=== PATIENT | male | born 1965 | race African-American/Black ===

== ENCOUNTER 2018-09-10 05:35 | Inpatient (IN) ==
[2018-09-10] MEDS ORDERED: ceFAZolin 1,000 MG in SYRINGE 1 EACH IV ONE (06:00)
[2018-09-10] MEDS ORDERED: VANCOMYCIN INJ 1,000 MG in SODIUM CHLORIDE 0.9% 250 ML IV ONE (06:00)
[2018-09-10] MEDS ORDERED: VANCOMYCIN 1,000 MG VIAL ONE (06:05)
[2018-09-10] MEDS ORDERED: ceFAZolin 1,000 MG VIAL ONE (06:05)
[2018-09-10] MEDS: LACTATED RINGERS 1,000 ML IV SCH (06:20)
[2018-09-10] MEDS ORDERED: TRANEXAMIC ACID 1,000 MG/10 ML VIAL ONE (06:31)
[2018-09-10] MEDS ORDERED: DEXAMETHASONE 4 MG/1 ML VIAL ONE (07:10)
[2018-09-10] MEDS ORDERED: SODIUM CHLORIDE 0.9% 100 ML IV ONE (07:10)
[2018-09-10] MEDS ORDERED: EPINEPHrine 1 MG/ML VIAL ONE (07:10)
[2018-09-10] MEDS ORDERED: BUPIVACAINE 0.5% 50 ML VIAL ONE (07:10)
[2018-09-10] MEDS ORDERED: MAGNESIUM HYDROXIDE SUSP 30 ML UDCUP PO PRN (07:32)
[2018-09-10] MEDS ORDERED: LACTULOSE 20 GM/30 ML UDCUP PO PRN (07:32)
[2018-09-10] MEDS ORDERED: TEMAZEPAM 7.5 MG CAPSULE PO PRN (07:32)
[2018-09-10] MEDS ORDERED: diphenhydrAMINE CAP 25 MG CAPSULE PO PRN (07:32)
[2018-09-10] MEDS ORDERED: BISACODYL 10 MG SUPP RECTAL PRN (07:32)
[2018-09-10] MEDS ORDERED: PROMETHAZINE 25 MG/1 ML VIAL IM PRN (07:32)
[2018-09-10] MEDS ORDERED: ONDANSETRON 4 MG/2 ML VIAL IV PRN (07:32)
[2018-09-10] MEDS ORDERED: ZALEPLON 5 MG CAPSULE PO PRN (07:36)
[2018-09-10] MEDS ORDERED: DEXTROSE 10% 250 ML BAG IV PRN (07:37)
[2018-09-10] MEDS ORDERED: GLUCAGON 1 MG VIAL IM PRN (07:37)
[2018-09-10] MEDS ORDERED: PROPOFOL 200 MG/20 ML VIAL IV ONE (09:05)
[2018-09-10] MEDS ORDERED: SODIUM CHLORIDE 0.9% 250 ML IV ONE (09:06)
[2018-09-10] MEDS ORDERED: fentaNYL 100 MCG/2 ML VIAL ONE (09:06)
[2018-09-10] MEDS ORDERED: PHENYLEPHRINE 1 MG/10 ML SYRINGE IV ONE (09:06)
[2018-09-10] MEDS ORDERED: MIDAZOLAM 2 MG/2 ML VIAL ONE (09:06)
[2018-09-10] MEDS ORDERED: BUPIVACAINE SPINAL 0.75% 2 ML AMP SPINAL ONE (09:06)
[2018-09-10] MEDS ORDERED: LACTATED RINGERS 2,000 ML IV ONE (09:06)
[2018-09-10 09:27] LABS: Apearance,Urine CLEAR (Clear); Bilirubin,Urine Negative (Negative); Blood, Urine Negative (Negative); Glucose,Urine (UA) Negative (Negative); Ketones,Urine 5 mg/dL (Negative); Mucus,Urine Occasional /LPF (Occasional); Nitrite,Urine Negative (Negative); Protein,Urine Negative; RBC,Urine 1 /HPF (0-4); Squamous Epithelial Cell,Urine Occasional /HPF (0-10); Urine Color Yellow (Yellow); Urine Specific Gravity 1.019 (1.001-1.035); Urine Urobilinogen < 2.0 EU/DL (0.2-1.0); WBC,Urine <1 /HPF (0-6)
[2018-09-10] MEDS: INSULIN REGULAR 100 UNIT/ML SUBCUT SCH ×3 (11:30→21:58)
[2018-09-10] MEDS: ROSUVASTATIN 20 MG TABLET PO SCH (13:58)
[2018-09-10] MEDS: DOCUSATE SODIUM 100 MG CAPSULE PO SCH ×2 (13:58→21:58)
[2018-09-10] MEDS: DILTIAZEM CD 300 MG CAPSULE PO SCH (13:58)
[2018-09-10] MEDS: ASPIRIN EC 81 MG TABLET PO SCH (13:58)
[2018-09-10] MEDS: FERROUS SULFATE 325 MG TABLET PO SCH (13:59)
[2018-09-10] MEDS: PANTOPRAZOLE 40 MG TABLET PO SCH (13:59)
[2018-09-10] MEDS: OMEGA 3 ACID ETHYL ESTERS 1 GM CAPSULE PO SCH (13:59)
[2018-09-10] MEDS: TRIAMTERENE/HCTZ 37.5-25 MG TABLET PO SCH (13:59)
[2018-09-10] MEDS: CHOLECALCIFEROL 1,000 UNIT TABLET PO SCH (13:59)
[2018-09-10] MEDS: tiZANidine 4 MG TABLET PO SCH ×2 (14:00→21:57)
[2018-09-10] MEDS: metFORMIN 850 MG TABLET PO SCH ×2 (14:00→16:55)
[2018-09-10] MEDS: MORPHINE 4 MG/1 ML VIAL IV PRN ×2 (14:37→19:38)
[2018-09-10] MEDS: ceFAZolin 2,000 MG in PREMIX 1 EACH IV SCH ×2 (14:42→23:38)
[2018-09-10] MEDS: glyBURIDE 5 MG TABLET PO SCH (17:05)
[2018-09-10] MEDS: traZODone 50 MG TABLET PO SCH (21:57)
[2018-09-10] MEDS: CETIRIZINE 10 MG TABLET PO SCH (21:57)
[2018-09-10] MEDS: FONDAPARINUX 2.5 MG/0.5 ML SYRINGE SUBCUT SCH (21:57)
[2018-09-11] MEDS: MORPHINE 4 MG/1 ML VIAL IV PRN ×2 (00:10→08:43)
[2018-09-11 05:40] LABS: Basophils % 0.3 % (0.0-0.8); Hemoglobin 10.9 GM/DL (14.0-18.0); Immature Granulocytes % 0.6 %; Immature Granulocytes Absolute 0.04 #; Lymphocytes # 1.2 10*3/uL (1.4-4.0); Lymphocytes % 17.1 % (21.2-54.2); Mean Corpuscular Volume 90.2 FL (87-102); Mean Platelet Volume 11.3 FL (9.6-12.0); Monocytes % 9.6 % (1.7-12.7); Neutrophils % 72.4 % (38.7-73.9); Platelet Count 186 T/CUMM (130-400); Red Blood Count 3.66 MC/CUMM (3.8-5.5); Red Cell Distribution Width 12.2 % (9.3-17.3); White Blood Count 7.1 T/CUMM (4-12)
[2018-09-11 06:09] LABS: Calcium 8.8 MG/DL (8.5-10.1); Osmolality,Calculated 284.4 MOS/KG (273-304)
[2018-09-11] MEDS: LACTATED RINGERS 1,000 ML IV SCH ×2 (06:13→14:50)
[2018-09-11] MEDS: DILTIAZEM CD 300 MG CAPSULE PO SCH (08:42)
[2018-09-11] MEDS: metFORMIN 850 MG TABLET PO SCH ×3 (08:42→16:21)
[2018-09-11] MEDS: ROSUVASTATIN 20 MG TABLET PO SCH (08:42)
[2018-09-11] MEDS: OMEGA 3 ACID ETHYL ESTERS 1 GM CAPSULE PO SCH (08:42)
[2018-09-11] MEDS: DOCUSATE SODIUM 100 MG CAPSULE PO SCH ×2 (08:42→21:00)
[2018-09-11] MEDS: ASPIRIN EC 81 MG TABLET PO SCH (08:42)
[2018-09-11] MEDS: FERROUS SULFATE 325 MG TABLET PO SCH (08:42)
[2018-09-11] MEDS: TRIAMTERENE/HCTZ 37.5-25 MG TABLET PO SCH (08:42)
[2018-09-11] MEDS: CHOLECALCIFEROL 1,000 UNIT TABLET PO SCH (08:42)
[2018-09-11] MEDS: glyBURIDE 5 MG TABLET PO SCH ×2 (08:42→16:21)
[2018-09-11] MEDS: PANTOPRAZOLE 40 MG TABLET PO SCH (08:42)
[2018-09-11] MEDS: INSULIN REGULAR 100 UNIT/ML SUBCUT SCH ×4 (08:43→21:00)
[2018-09-11] MEDS: tiZANidine 4 MG TABLET PO SCH ×2 (08:49→20:59)
[2018-09-11] MEDS: traZODone 50 MG TABLET PO SCH (20:59)
[2018-09-11] MEDS: CETIRIZINE 10 MG TABLET PO SCH (21:00)
[2018-09-11] MEDS: FONDAPARINUX 2.5 MG/0.5 ML SYRINGE SUBCUT SCH (21:04)
[2018-09-12] MEDS: INSULIN REGULAR 100 UNIT/ML SUBCUT SCH ×2 (07:29→11:08)
[2018-09-12] MEDS: LACTATED RINGERS 1,000 ML IV SCH (07:29)
[2018-09-12] MEDS: ASPIRIN EC 81 MG TABLET PO SCH (08:32)
[2018-09-12] MEDS: tiZANidine 4 MG TABLET PO SCH (08:33)
[2018-09-12] MEDS: CHOLECALCIFEROL 1,000 UNIT TABLET PO SCH (08:33)
[2018-09-12] MEDS: FERROUS SULFATE 325 MG TABLET PO SCH (08:33)
[2018-09-12] MEDS: glyBURIDE 5 MG TABLET PO SCH (08:33)
[2018-09-12] MEDS: metFORMIN 850 MG TABLET PO SCH ×2 (08:33→11:19)
[2018-09-12] MEDS: TRIAMTERENE/HCTZ 37.5-25 MG TABLET PO SCH (08:33)
[2018-09-12] MEDS: OMEGA 3 ACID ETHYL ESTERS 1 GM CAPSULE PO SCH (08:33)
[2018-09-12] MEDS: PANTOPRAZOLE 40 MG TABLET PO SCH (08:33)
[2018-09-12] MEDS: ROSUVASTATIN 20 MG TABLET PO SCH (08:33)
[2018-09-12] MEDS: DOCUSATE SODIUM 100 MG CAPSULE PO SCH (08:33)
[2018-09-12] MEDS: DILTIAZEM CD 300 MG CAPSULE PO SCH (08:33)
[2018-09-12 11:18] VITALS: BP 105/77
[2018-09-14] MEDS ORDERED: ERGOCALCIFEROL 50,000 UNIT CAPSULE PO SCH (09:00)
== END 2018-09-12 12:47 | disposition home health service (06) | DRG 470 ==
LOC: N.SDSINP 05:35 → N.3E 10:15
PROVIDERS: ADMIT Orthopaedic Surgery; ATTEND Orthopaedic Surgery